=== PATIENT | female | born 1945 | race Caucasian/White ===

== ENCOUNTER 2017-02-05 04:48 | Inpatient (IN) ==
[2017-01-30 14:10] LABS: Basophils # (Auto) 0 K/mcL (0.0-0.3); Basophils % (Auto) 0.3 % (0.0-2.0); Eosinophils # (Auto) 0.2 K/mcL (0.0-0.7); Eosinophils % (Auto) 3.1 % (0.0-7.0); Granulocytes % (Auto) 64.2 % (38.0-78.0); Lymphocytes # (Auto) 1.5 K/mcL (1.5-4.8); Lymphocytes % (Auto) 22.5 % (15.5-49.0); Mean Cell Volume 89.6 fL (80.0-100.0); Mean Corpuscular HGB Conc 33.1 g/dL (31.0-36.0); Mean Corpuscular Hemoglobin 29.6 pg (26.0-34.0); Monocytes # (Auto) 0.7 K/mcL (0.1-0.9); Monocytes % (Auto) 9.9 % (1.0-12.0); Platelet Count 292 K/mcL (140-440); RBC 4.61 M/mcL (4.00-5.20); Red Cell Distribution Width 14.7 % (11.5-14.5)
[2017-01-30 14:21] LABS: Blood Urea Nitrogen 14 mg/dl (8-23)
[2017-01-30 14:47] LABS: Appearance,Urine HAZY; Bilirubin,Urine NEG (NEG); Color,Urine AMBER; Glucose,Urine (UA) NEGATIVE (NEG); Leukocyte Esterase,Urine NEG /uL (NEG); Nitrate,Urine NEG (NEG); Protein,Urine NEG (NEG); Specific Gravity,Urine 1.019 (1.000-1.035); Urine Blood NEG mg/dL (<0.03); Urobilinogen,Urine NEG (NEG)
[2017-02-05] MEDS ORDERED: oxyCODONE 10 MG TAB.ER.12H PO SCH (05:00)
[2017-02-05] MEDS ORDERED: ceFAZolin 1 GM VIAL IV SCH (05:00)
[2017-02-05] MEDS ORDERED: PREGABALIN 75 MG CAPSULE PO SCH (05:00)
[2017-02-05] MEDS ORDERED: PHENYLEPHRINE 10 MG/ML VIAL IV ONE (07:30)
[2017-02-05] MEDS ORDERED: ONDANSETRON 4 MG/2 ML VIAL IV ONE (07:30)
[2017-02-05] MEDS ORDERED: DEXAMETHASONE 10 MG/ML VIAL IV ONE (07:30)
[2017-02-05] MEDS ORDERED: LIDOCAINE HCL/PF 100 MG/5 ML SYRINGE IV ONE (07:30)
[2017-02-05] MEDS ORDERED: KETAMINE 100 MG/ML ML IV ONE (07:30)
[2017-02-05] MEDS ORDERED: GLYCOPYRROLATE 0.2 MG/ML VIAL IV ONE (07:30)
[2017-02-05] MEDS ORDERED: PROPOFOL 200 MG/20 ML VIAL IV ONE (07:30)
[2017-02-05] MEDS ORDERED: MIDAZOLAM 5 MG/5 ML VIAL IV ONE (07:30)
[2017-02-05] MEDS ORDERED: fentaNYL 250 MCG/5 ML VIAL IV ONE (07:30)
[2017-02-05] MEDS ORDERED: ePHEDrine 50 MG/ML AMPUL IV ONE (07:30)
[2017-02-05] MEDS ORDERED: SUCCINYLCHOLINE 20 MG/ML ML IV ONE (07:30)
[2017-02-05] MEDS ORDERED: ROPIVACAINE HCL/PF 30 ML VIAL IJ ONE (07:30)
[2017-02-05] MEDS ORDERED: GENTAMICIN SULFATE 800 MG/20 ML VIAL IR ONE (08:08)
--- NOTE | 2017-02-05 09:10 | Brief Operative Note ---
Date of procedure: 02/05/17 Pre-op diagnosis: right shoulder oa, biceps tendonitis Post-op diagnosis: same Procedure: right total shoulder arthroplasty, soft tissue biceps tenodesis Grafts/Implants: Yes Anesthesia: GETA Complications: none Surgeon: Yehuda Sánchez Vba Developer: Kalpesh Yadav Estimated blood loss (cc): 150 Specimens Removed/Pathology: none sent Condition: stable Disposition: PACU
[2017-02-05] MEDS ORDERED: MAGNESIUM HYDROXIDE 30 ML ORAL.SUSP PO PRN (09:11)
[2017-02-05] MEDS ORDERED: METHOCARBAMOL 750 MG TABLET PO PRN (09:11)
[2017-02-05] MEDS ORDERED: ONDANSETRON ODT 4 MG TABLET SL PRN (09:11)
[2017-02-05] MEDS ORDERED: BISACODYL 10 MG SUPP.RECT PR PRN (09:11)
[2017-02-05] MEDS ORDERED: FLEETS ADULT ENEMA PR PRN (09:11)
[2017-02-05] MEDS ORDERED: HYDROmorphone 2 MG/ML SYRINGE IV PRN (09:11)
[2017-02-05] MEDS ORDERED: BENZOCAINE/MENTHOL 1 LOZENGE PO PRN ×2 (09:11→09:48)
[2017-02-05] MEDS ORDERED: POLYETHYLENE GLYCOL 3350 17 GM PACKET PO PRN (09:11)
[2017-02-05] MEDS ORDERED: ONDANSETRON 4 MG/2 ML VIAL IV PRN ×2 (09:11→09:48)
[2017-02-05] MEDS ORDERED: TRANEXAMIC ACID 1,000 MG/10 ML VIAL IV ONE (09:11)
--- NOTE | 2017-02-05 09:11 | Discharge Summary ---
Ortho Discharge - TSA - Patient Instructions Diet: Regular Diet Activity: non weight bearing Total Shoulder Protocol: Leave immobilizer in place except for bathing and ROM. Abduction pillow. Continue to wear sling until seen by physician. Codman Pendulum : These exercises use momentum produced by your body to move your shoulder joint. Bend your knees and shift your weight to your front leg, then back, allowing your arm to swing in the same directions. Using the same technique, alternately shift your weight between your right and left legs, allowing your arm to swing from side to side. These exercises are also performed in counterclockwise and clockwise circular motions. Typically these exercises are performed several times per day, for a set number repetitions or minutes, such as 20 times in a row or 5 minutes at a time. Dressing Care: May shower in 2 days - Follow Up Plan Disposition: Home, Self-Care Prognosis: Good Rehab Potential: Good I certify that the patient requires SNF services: No Overall status at discharge: patient is progressing back to baseline
[2017-02-05] MEDS ORDERED: MEPERIDINE 25 MG/ML SYRINGE IV PRN (09:48)
[2017-02-05] MEDS ORDERED: IPRATROPIUM/ALBUTEROL 3 ML AMPUL.NEB NEB PRN (09:48)
[2017-02-05] MEDS ORDERED: METHOCARBAMOL 1,000 MG/10 ML VIAL IV PRN (09:48)
[2017-02-05] MEDS ORDERED: METOPROLOL TARTRATE 5 MG/5 ML VIAL IV PRN (09:48)
[2017-02-05] MEDS ORDERED: fentaNYL 100 MCG/2 ML VIAL IV PRN (09:48)
[2017-02-05] MEDS: KETOROLAC 15 MG/ML VIAL IV PRN (09:51)
[2017-02-05] MEDS ORDERED: LACTATED RINGERS 1,000 ML IV SCH (10:00)
--- NOTE | 2017-02-05 10:00 | XRay Report ---
CLINICAL INFORMATION: Postop total shoulder prostheses COMPARISON: Preoperative chest x-ray 01/26/2016. FINDINGS: Shoulder prostheses anatomically aligned. No osseous abnormality. Soft tissues swelling seen as expected. IMPRESSION: Negative Interpreted and Authenticated by: Yehuda Cueva 02/05/17
--- NOTE | 2017-02-05 10:00 | Operative Note ---
DATE OF OPERATION: 02/05/2017 PREOPERATIVE DIAGNOSES: 1. Right shoulder osteoarthritis. 2. Right shoulder biceps tendinitis. POSTOPERATIVE DIAGNOSES: 1. Right shoulder osteoarthritis. 2. Right shoulder biceps tendinitis. PROCEDURE: 1. Right total shoulder arthroplasty. 2. Right shoulder soft tissue biceps tenodesis. SURGEON: Teddy Sánchez M.D. PLASTIC SHEETS FINISHING SUPERVISOR SURGEON: Kalpesh Yadav PA-C. ANESTHESIA: General. ESTIMATED BLOOD LOSS: 100 mL. COMPLICATIONS: None noted. SPECIMENS REMOVED: None. DRAINS: None. IMPLANTS: DePuy CMW2 bone cement 20 grams; DePuy [employer] [place] Peg Glenoid Premieron crosslinked size 44; [employer] Unite [place] standard stem size 10; [employer] Unite anatomic proximal body 135 degrees size 10 Porocoat; DePuy [employer] Unite eccentric humeral head size 44 x 18. INDICATIONS: The patient has had a long-standing history of worsening pain in the shoulder that has failed conservative treatment. Radiographs have confirmed advanced degenerative joint disease. After a long discussion about treatment options, the patient elected to proceed with a total shoulder arthroplasty. The risks and benefits were discussed with the patient in detail including, but not limited to, the risks of anesthesia, problems with the heart or lungs related to anesthesia, infection, compromise or injury to the nerves and blood vessels, deep venous thrombosis, pulmonary embolism, pneumonia, continued pain after surgery, worsening pain or symptoms after surgery, swelling, loss of motion, instability, fracture, arm length discrepancy, and need for repeat surgery. DESCRIPTION OF PROCEDURE: The patient was seen in the pre-anesthesia waiting room where all questions were answered and the correct side and site were identified and marked. The patient was transferred to the operating room and administered the anesthetic and given pre-operative antibiotics. A time-out was then called. The patient was placed in the modified beach chair position with all prominences well padded. The extremity was prepped and draped from the fingers up to the neck. A standard deltopectoral skin incision was created. Dissection was carried down to the deltopectoral groove and the cephalic vein was isolated medially and retracted laterally with the deltoid. Retractors were placed and the coracobrachialis was split up to the coracoacromial ligament allowing retraction of the conjoined tendon. We split the subscapularis 1 cm medial to the bicipital groove and extended the split into the rotator interval. This was tagged for later repair. The biceps was cut and a soft tissue tenodesis was performed into the anterior shoulder with #2 FiberWire. A capsular release was performed in a posterior subperiosteal direction along the humerus. The humeral head was then dislocated. We established intramedullary access and hand reamed up to get good cortical chatter with the DePuy [employer] AP total shoulder instrumentation. We then used the intramedullary guide and set to about 30 degrees of retroversion. The proximal humerus cut was performed and osteophytes were removed. A metal protector plate was then placed. Attention was then turned to the glenoid. Retractors were placed for optimal visualization and the labrum was excised in its entirety. A centralizing Steinmann pin was placed just into the posterior inferior quadrant in a standard fashion. We reamed over the pin to remove all the cartilage and get to a good base for the prosthesis. The drill was then placed over for the central peg. The glenoid was sized and surface was inspected to confirm conformity. The template base-plate was used to drill the three additional pegs, anchoring each with the anti-rotation peg. All bleeding was stopped with epinephrine soaked sponges. Next, we then cemented the anchor peg glenoid with DBX bone paste placed around the anchor peg and Palacos cement in the three additional peg holes. We allowed the cement to harden and checked the stability and placement of the glenoid. Attention was then turned back to the humerus. We set version and broached up to a stable implant. The humeral head trial was placed and good tension, motion, and stability were obtained at this point. Trials were removed and the final press fit humeral prosthesis was impacted into place with measured version. A final check confirmed adequate motion, tension, and stability. We irrigated with 3 liters of antibiotic saline and closed the subscapularis with #2 FiberWire. We irrigated again and closed the deltopectoral interval with several 0 Vicryl figure of eight sutures. The subcutaneous layer was closed with 2-0 Vicryl and the skin was closed with 4-0 Monocryl in a subcuticular fashion. A sterile pressure dressing was applied and the patient was placed into an abduction sling. All needle and sponge counts were correct. The patient was transferred to the recovery room in stable condition. CARSON:conrado Job ID: [id number] Doc ID: [id number] Teddy Sánchez MD
[2017-02-05] MEDS: 0.9 % SODIUM CHLORIDE 1,000 ML IV SCH ×3 (10:39→19:06)
[2017-02-05] MEDS: HYDROcodone/APAP 10/325MG TABLET PO PRN ×2 (14:13→15:00)
[2017-02-05] MEDS: 0.9 % SODIUM CHLORIDE 10 ML SYRINGE IV SCH ×2 (14:14→21:12)
[2017-02-05] MEDS: ceFAZolin 1 GM VIAL IV SCH ×2 (14:30→23:36)
[2017-02-05] MEDS ORDERED: ASPIRIN 81 MG TAB.CHEW CHEWED SCH (17:00)
[2017-02-05] MEDS: DOCUSATE SODIUM 100 MG CAPSULE PO SCH (20:26)
[2017-02-05] MEDS ORDERED: ACETAMINOPHEN 500 MG TABLET PO PRN (20:50)
[2017-02-05] MEDS ORDERED: SIMVASTATIN 10 MG TABLET PO SCH (21:00)
[2017-02-05] MEDS ORDERED: PRAVASTATIN 20 MG TABLET PO SCH (21:00)
[2017-02-05] MEDS ORDERED: SENNOSIDES 1 TABLET PO SCH (21:00)
[2017-02-05] MEDS: VENLAFAXINE 150 MG CAP.XL.24H PO SCH (21:18)
[2017-02-06] MEDS: HYDROcodone/APAP 10/325MG TABLET PO PRN ×3 (03:12→10:33)
[2017-02-06] MEDS: 0.9 % SODIUM CHLORIDE 1,000 ML IV SCH ×2 (03:13→10:17)
[2017-02-06] MEDS: 0.9 % SODIUM CHLORIDE 10 ML SYRINGE IV SCH (05:17)
--- NOTE | 2017-02-06 06:43 | Orthopedic Progress Note ---
Subjective Patient information: Note initiated : 02/06/17 at 6:42 am Service Date, if different from initiated Date: [] Patient: Leida Kwok 71 y/o F admitted on 02/05/17 for Right Total Shoulder Arthroplasty with Bicep. Chief Complaint: [] Interval history: doing ok. some pain Objective Vital signs: Vital Signs Temp Pulse Resp BP Pulse Ox 02/06/17 03:30 97.7 F 82 20 167/77 97 02/06/17 00:40 96 02/06/17 00:00 97.5 F 92 H 20 155/82 91 02/05/17 21:20 96 02/05/17 21:19 96 02/05/17 20:00 98.6 F 92 H 20 137/74 96 02/05/17 15:51 98.4 F 16 111/68 95 02/05/17 15:18 92 02/05/17 14:13 97.9 F 74 18 133/83 96 02/05/17 13:25 97.6 F 20 146/71 91 02/05/17 12:25 20 152/72 91 02/05/17 11:55 97.4 F 20 160/75 92 02/05/17 11:25 97.4 F 20 152/71 92 02/05/17 11:10 20 166/77 92 02/05/17 10:55 20 173/71 90 02/05/17 10:40 78 18 165/72 93 02/05/17 10:20 97.2 F 73 16 158/59 95 02/05/17 10:04 97.2 F 73 16 158/59 95 02/05/17 09:49 97.1 F 66 15 128/84 97 02/05/17 09:44 96.9 F L 66 15 128/66 97 02/05/17 09:39 96.9 F L 66 15 132/50 97 02/05/17 09:34 97.5 F 66 10 L 127/49 97 Intake and Output 02/05/17 02/06/17 02/06/17 21:59 05:59 13:59 Intake Total 1200 / 1200 1800 / 1800 Output Total 1850 / 1850 750 / 750 Balance -650 / -650 1050 / 1050 Intake: IV 1000 / 1000 1000 / 1000 Sodium Chloride 0.9% 1, 1000 / 1000 1000 / 1000 000 ml @ 125 mls/hr IV . Q8H NICOLE Rx#:[id number] Oral 200 / 200 800 / 800 Output: Void Amount 1850 / 1850 750 / 750 Straight 450 / 450 Other: Meal Dinner Percent of Meal Consumed 100% Feeding Ability Assist with Tray Set Up # Voids 1 1 Weight 199 lb 8 oz Intake & Output: Intake & Output 02/05/17 02/06/17 02/06/17 21:59 05:59 13:59 Intake Total 1200 / 1200 1800 / 1800 Output Total 1850 / 1850 750 / 750 Balance -650 / -650 1050 / 1050 Weight 199 lb 8 oz Intake: IV 1000 / 1000 1000 / 1000 Sodium Chloride 0.9% 1, 1000 / 1000 1000 / 1000 000 ml @ 125 mls/hr IV . Q8H NICOLE Rx#:[id number] Oral 200 / 200 800 / 800 Output: Void Amount 1850 / 1850 750 / 750 Straight 450 / 450 Other: Meal Dinner Percent of Meal Consumed 100% Feeding Ability Assist with Tray Set Up # Voids 1 1 Incision: Yes healing Incision clean and dry: Yes Dressing: Yes clean, Yes dry, Yes intact Weight bearing status: non Neurological exam IM: Yes alert, Yes oriented X3, Yes motor sensory intact, Yes neurovascular intact Extremities exam IM: No calf tenderness, Yes Foot pink and warm, Yes neurovascular intact - Labs CBC & BMP: 02/06/17 04:25 01/30/17 12:20 Labs: Orthopedic Labs 01/30/17 12:20 PT 13.4 INR 1.0 02/06/17 01/30/17 04:25 12:21 Hgb 12.3 13.6 Hct 36.5 41.3 Assessment and Plan (1) Osteoarthritis, shoulder pod 1 s/p tsa doing well pain control pt home today Status: Acute
[2017-02-06] MEDS ORDERED: PANTOPRAZOLE 40 MG TABLET PO SCH (07:30)
[2017-02-06] MEDS ORDERED: FERROUS SULFATE 325 MG TABLET PO SCH (08:00)
[2017-02-06] MEDS ORDERED: metFORMIN 500 MG TABLET PO SCH (08:00)
[2017-02-06] MEDS ORDERED: DILTIAZEM 180 MG CAP.XL.24H PO SCH (09:00)
[2017-02-06] MEDS: VENLAFAXINE 150 MG CAP.XL.24H PO SCH (10:13)
[2017-02-06] MEDS: DOCUSATE SODIUM 100 MG CAPSULE PO SCH (10:18)
[2017-02-06] MEDS: KETOROLAC 15 MG/ML VIAL IV PRN (10:32)
[2017-02-06] MEDS ORDERED: OMEPRAZOLE 20 MG CAPSULE PO SCH (17:00)
== END 2017-02-06 15:30 | disposition home or self-care (01) | DRG 483 ==
LOC: MEDSUR 04:48
PROVIDERS: ADMIT Orthopaedic Surgery Sports Medicine; ATTEND Orthopaedic Surgery Sports Medicine